=== PATIENT | male | born 1965 | race Two or more races ===

== ENCOUNTER 2018-03-29 16:27 | Inpatient (IN) | payer MEDICARE, MEDICAID ==
[~2018-03-29] VITALS: Ht 175.3 cm; Wt 108.9 kg
--- NOTE | 2018-03-29 16:30 | NUR ---
PATIENT C/O "IM HAVING ANXIETY SINCE LAST NIGHT AND MY XANAX IS NOT WORKING." A/OX3. VSS. WAITING FOR MD MELGAR
[2018-03-29 17:05] LABS: BASOPHILS % (AUTO) 0.4 % (0.0-2.0); HEMATOCRIT 40 % (39-51); HEMOGLOBIN 12.8 g/dL (13.5-17.5); LYMPHOCYTES # (AUTO) 2.2 /CMM (0.8-4.8); MEAN CORPUSCULAR HEMOGLOBIN 27 PG (26.0-33.0); MEAN CORPUSCULAR HGB CONC 32 g/dl (31.0-36.0); MEAN CORPUSCULAR VOLUME 84 fL (80-96); MONOCYTES # (AUTO) 0.6 /CMM (0.1-1.30); MONOCYTES % (AUTO) 8.3 % (2.0-12.0); NEUTROPHILS # (AUTO) 4.1 /CMM (1.8-8.9); NEUTROPHILS % (AUTO) 59.3 % (43.0-81.0); PLATELET COUNT (AUTO) 360 /CMM (150-450); RDW COEFFICIENT OF VARIATION 13.4 (11.5-15.0); RED BLOOD CELL COUNT(AUTO) 4.77 MIL/uL (4.5-6.0)
[2018-03-29 17:29] LABS: CALCIUM, SERUM 8.9 mg/dL (8.5-10.1); CARBON DIOXIDE 28 mmol/L (21-32); CHLORIDE 99 mmol/L (98-107); CREATININE 1.2 mg/dL (0.6-1.3); GLUCOSE 168 mg/dL (74-106); POTASSIUM 4.2 mmol/L (3.5-5.1); SODIUM SERUM 134 mmol/L (136-145); UREA NITROGEN, BLOOD 25 mg/dL (7-18)
[2018-03-29 17:35] LABS: ALANINE AMINOTRANSFERASE 29 U/L (12-78); ALBUMIN 3.6 g/dL (3.4-5.0); ALKALINE PHOSPHATASE 62 U/L (46-116); ASPARTATE AMINOTRANSFERASE 15 U/L (15-37); BILIRUBIN,DIRECT 0.1 mg/dL (0.0-0.2); BILIRUBIN,TOTAL 0.3 mg/dL (0.2-1.0); TOTAL PROTEIN, SERUM 7.6 g/dL (6.4-8.2)
[2018-03-29 17:38] LABS: ACETAMINOPHEN < 2 ug/ml (10-30); ALCOHOL, BLOOD < 3 mg/dL (0-0); SALICYLATE 2.7 mg/dL (2.8-20.0)
--- NOTE | 2018-03-29 19:20 | NUR ---
patient in stable condition. endorsed to SEAMUS Momin.
[2018-03-29 19:52] LABS: APPEARANCE,URINE CLEAR (CLEAR); BILIRUBIN,URINE NEGATIVE (NEGATIVE); BLOOD, URINE NEGATIVE Ery/uL (NEGATIVE); COLOR,URINE YELLOW (YELLOW); KETONES,URINE NEGATIVE (NEGATIVE); LEUKOCYTE ESTERASE ,URINE NEGATIVE (NEGATIVE); NITRITE, URINE NEGATIVE (NEGATIVE); PH,URINE 5.5 (5.0-8.0); PROTEIN,URINE NEGATIVE (NEGATIVE); UGLUCOSE TRACE mg/dL (NEGATIVE); UROBILINOGEN,URINE 0.2 EU/dL (0.2)
[2018-03-29 20:02] LABS: BACTERIA,URINE None seen /HPF (None Seen); RBC,URINE 0-2 /HPF (0-2); SQUAMOUS EPITHELIAL CELL,UR 0-2 /HPF (None Seen); WBC,URINE 0-2 /HPF (0-3)
--- NOTE | 2018-03-29 20:16 | NUR ---
BED 216-2 GPS
--- NOTE | 2018-03-29 20:36 | NUR ---
PT CALM & COOPERATIVE, NAD NOTED @ THIS TIME, WILL BE TRANSPORTED TO PSYCH UNIT.
[2018-03-29 21:00] VITALS: BP 125/76
[2018-03-29 21:15] VITALS: BP 125/76
[2018-03-29] MEDS ORDERED: MAGNESIUM HYDROXIDE 30 ML UDC PO PRN (21:30)
[2018-03-29] MEDS ORDERED: MAG HYDROX/AL HYDROX/SIMETH 30 ML UDC PO PRN (21:30)
[2018-03-29] MEDS ORDERED: LORAZEPAM 0.5 MG TABLET PO PRN (21:30)
[2018-03-29] MEDS ORDERED: ACETAMINOPHEN 325 MG TABLET PO PRN (21:30)
[2018-03-29] MEDS ORDERED: TEMAZEPAM 7.5 MG CAPSULE PO PRN (21:30)
--- NOTE | 2018-03-29 21:30 | NUR ---
ADMITTED 53 Y/O HOMELESS MALE EVALUATED AT [facility]. ON 5150 HOLD, BASED ON HOLD, PATIENT PRESENTED HIMSELF TO ER STATING DEPRESSED WITH SUICIDAL IDEATION WITH PLAN TO RUN INTO TRAFFIC. PATIENT ADMITTING DX. DEPRESSED MOOD AND MEDICAL DX. OF HYPERTENSION, TYPE 2 DM. UPON FACE TO FACE EVALUATION, PATIENT APPEARED ALERT, ORIENTED X 4, COOPERATIVE, HYPERVERBAL BUT REDIRECTIBLE, ADMITS TO SUICIDAL IDEATION BUT DENIES PLAN AND CONTRACTS FOR SAFETY AT THIS TIME, NO SOB, NO ACUTE DISTRESS, BREATHING EVEN AND UNLABORED, DENIES PAIN AND DISCOMFORT. HEAD TO TOE ASSESSMENT DONE, AMBULATORY, CONTINENT,SKIN INTACT, PICTURES TAKEN, PATIENT SIGNED PAPERWORK. ALL CONTRABANDS AND BELONGINGS INSPECTED BY THE DROP HAMMER MECHANIC, MEDICATIONS LOGGED AND IN BAG TO BE SENT TO PHARMACY. NOTIFIED DR. HAJI OF THE ADMISSION. DR. GRAVES NOTIFIED OF ADMISSION AND WILL SEE PATIENT TONIGHT. SNACK PROVIDED,KEPT CLEAN, DRY AND COMFORTABLE, WILL CONTINUE TO MONITOR [id number] FOR SAFETY.
[2018-03-29] MEDS ORDERED: IBUP-1957 PO (21:38)
[2018-03-29] MEDS ORDERED: METF10004 PO (21:38)
[2018-03-29] MEDS ORDERED: LISI30TA4 PO (21:38)
[2018-03-30] MEDS ORDERED: IBUPROFEN 800 MG TABLET PO SCH (00:30)
[2018-03-30] MEDS: METFORMIN 500 MG TABLET PO SCH ×2 (08:56→17:29)
[2018-03-30] MEDS: LISINOPRIL (10MG) 10 MG TABLET PO SCH (08:57)
[2018-03-30 09:02] VITALS: BP 122/78
[2018-03-30] MEDS: IBUPROFEN 400 MG TABLET PO PRN (09:02)
--- NOTE | 2018-03-30 09:02 | NUR ---
[id number]: GAVE MOTRIN 800 MG PO DUE TO GENERALIZED PAIN 6/10 PAIN UPON PT REQUEST AND WILL CONTINUE TO MONITOR FOR EFFECTIVENESS OF MEDICATION.
[2018-03-30 16:00] VITALS: BP 142/98
[2018-03-30] MEDS: ARIPIPRAZOLE 5 MG TABLET PO SCH (17:29)
[2018-03-30 20:00] VITALS: BP 117/72
[2018-03-30 21:04] VITALS: BP 117/72
[2018-03-30] MEDS ORDERED: LORAZEPAM 0.5 MG TABLET PO PRN (21:30)
[2018-03-31 07:07] LABS: BASOPHILS % (AUTO) 0.4 % (0.0-2.0); EOSINOPHILS % (AUTO) 1.2 % (0.0-6.0); HEMATOCRIT 41 % (39-51); HEMOGLOBIN 13.2 g/dL (13.5-17.5); LYMPHOCYTES # (AUTO) 2.6 /CMM (0.8-4.8); LYMPHOCYTES % (AUTO) 37.3 % (20.0-44.0); MEAN CORPUSCULAR HEMOGLOBIN 28 PG (26.0-33.0); MEAN CORPUSCULAR HGB CONC 33 g/dl (31.0-36.0); MEAN CORPUSCULAR VOLUME 87 fL (80-96); MONOCYTES # (AUTO) 0.5 /CMM (0.1-1.30); MONOCYTES % (AUTO) 7.7 % (2.0-12.0); NEUTROPHILS # (AUTO) 3.7 /CMM (1.8-8.9); NEUTROPHILS % (AUTO) 53.4 % (43.0-81.0); PLATELET COUNT (AUTO) 310 /CMM (150-450); RDW COEFFICIENT OF VARIATION 14.1 (11.5-15.0); RED BLOOD CELL COUNT(AUTO) 4.68 MIL/uL (4.5-6.0)
[2018-03-31 07:24] LABS: CHOLESTEROL 193 mg/dL (<200); HDL CHOLESTEROL 38 mg/dL (40-60); LDL 131 mg/dL (0-99); TRIGLYCERIDES 142 mg/dL (30-150)
[2018-03-31 07:25] LABS: ALBUMIN 3.3 g/dL (3.4-5.0); BILIRUBIN,TOTAL 0.4 mg/dL (0.2-1.0); CALCIUM, SERUM 8.8 mg/dL (8.5-10.1); TOTAL PROTEIN, SERUM 7.2 g/dL (6.4-8.2)
[2018-03-31 08:00] VITALS: BP 119/77
[2018-03-31] MEDS: ARIPIPRAZOLE 5 MG TABLET PO SCH (08:53)
[2018-03-31] MEDS: METFORMIN 500 MG TABLET PO SCH ×2 (08:53→17:34)
[2018-03-31] MEDS: LISINOPRIL (10MG) 10 MG TABLET PO SCH (08:53)
[2018-03-31] MEDS: IBUPROFEN 400 MG TABLET PO PRN (08:54)
--- NOTE | 2018-03-31 08:54 | NUR ---
[id number]: GAVE MOTRIN 800 MG PO DUE TO GENERALIZED PAIN 6/10 PAIN UPON PT REQUEST AND WILL CONTINUE TO MONITOR FOR EFFECTIVENESS OF MEDICATION.
[2018-03-31] MEDS ORDERED: ARIPIPRAZOLE 5 MG TABLET PO SCH (09:00)
[2018-03-31 16:00] VITALS: BP 108/52
--- NOTE | 2018-03-31 16:05 | NUR ---
INITIAL DISCHARGE PLAN: Patient wishes to be discharged [facility] a [facility] [place] [facility] in the [facility]. SW will help form a safe and proper discharge in collaboration with .
--- NOTE | 2018-03-31 19:00 | NUR ---
DISCHARGE NOTE: PT WAS DISCHARGED AT 1900 [facility]IA [facility] TO [facility]: [facility] - [address] [place] [address] - .
--- NOTE | 2018-03-31 22:52 | NUR ---
patient discharge [facility] accompanied by ambulance staff, denies any pain or discomfort at this time vital sign stable, no distress noted, patient was alert, oriented x 4 all needs met.
== END 2018-03-31 21:31 | disposition short-term general hospital (02) | DRG 885 ==
LOC: ER 16:30 → GPS 20:25
PROVIDERS: ADMIT Psychiatry & Neurology Psychosomatic Medicine; ATTEND Internal Medicine
DX: F25.0 Schizoaffective disorder, bipolar type (principal); F23 Brief psychotic disorder; R45.851 Suicidal ideations; E11.9 Type 2 diabetes mellitus without complications; I10 Essential (primary) hypertension; F41.9 Anxiety disorder, unspecified; Z73.6 Limitation of activities due to disability; E66.01 Morbid (severe) obesity due to excess calories; F32.9 Major depressive disorder, single episode, unspecified; Z68.35 Body mass index [BMI] 35.0-35.9, adult; F19.90 Other psychoactive substance use, unspecified, uncomplicated; Z59.0 Homelessness; Z79.899 Other long term (current) drug therapy; Z79.84 Long term (current) use of oral hypoglycemic drugs
CPT/HCPCS: 36415; 80048-TC; 80053-TC; 80061-TC; 80076-TC; 80305; 81000-TC; 85025-TC; 87081-TC; A4606; G0480; Z7610

== ENCOUNTER 2018-08-03 11:39 | Emergency (ER) | payer MEDICARE, OTHER ==
[~2018-08-03] VITALS: Ht 172.7 cm; Wt 108.4 kg
[~2018-08-03 11:39] MED LIST: IBUP-1957 PO; LISI30TA4 PO; METF-442 PO
--- NOTE | 2018-08-03 11:41 | NUR ---
PT BIB SELF C/ SUICIDAL IDEATION, PT IS AAOX4, NOT IN RESPIRATORY DISTRESS, V/S STABLE, KEPT RESTED AND COMFORTABLE.
--- NOTE | 2018-08-03 11:45 | NUR ---
URINE SAMPLE COLLECTED AND SENT TO LAB.
[2018-08-03 12:11] LABS: APPEARANCE,URINE Clear (CLEAR); BILIRUBIN,URINE Negative (NEGATIVE); BLOOD, URINE Negative Ery/uL (NEGATIVE); COLOR,URINE Yellow (YELLOW); KETONES,URINE Negative (NEGATIVE); LEUKOCYTE ESTERASE ,URINE Negative (NEGATIVE); NITRITE, URINE Negative (NEGATIVE); PH,URINE 5.5 (5.0-8.0); PROTEIN,URINE Negative (NEGATIVE); UGLUCOSE 500 MG/DL mg/dL (NEGATIVE); UROBILINOGEN,URINE 0.2 EU/dL (0.2)
--- NOTE | 2018-08-03 12:14 | NUR ---
PHLEB AT BEDSIDE, LABS DRAWNED.
[2018-08-03 12:20] LABS: BASOPHILS # (AUTO) 0.1 /CMM (0.0-0.2); BASOPHILS % (AUTO) 0.8 % (0.0-2.0); EOSINOPHILS % (AUTO) 1.2 % (0.0-6.0); HEMATOCRIT 44 % (39-51); HEMOGLOBIN 14.5 g/dL (13.5-17.5); LYMPHOCYTES # (AUTO) 1.9 /CMM (0.8-4.8); LYMPHOCYTES % (AUTO) 27.2 % (20.0-44.0); MEAN CORPUSCULAR HGB CONC 33 g/dl (31.0-36.0); MEAN CORPUSCULAR VOLUME 85 fL (80-96); MONOCYTES # (AUTO) 0.7 /CMM (0.1-1.30); MONOCYTES % (AUTO) 9.3 % (2.0-12.0); NEUTROPHILS # (AUTO) 4.4 /CMM (1.8-8.9); NEUTROPHILS % (AUTO) 61.5 % (43.0-81.0); PLATELET COUNT (AUTO) 258 /CMM (150-450); RED BLOOD CELL COUNT(AUTO) 5.18 MIL/uL (4.5-6.0); WHITE BLOOD COUNT (AUTO) 7.1 K/uL (4.3-11.0)
[2018-08-03 12:44] LABS: ACETAMINOPHEN < 2 ug/ml (10-30); ALANINE AMINOTRANSFERASE 27 U/L (12-78); ALBUMIN 3.4 g/dL (3.4-5.0); ALCOHOL, BLOOD < 3 mg/dL (0-0); ALKALINE PHOSPHATASE 77 U/L (46-116); ASPARTATE AMINOTRANSFERASE 29 U/L (15-37); BILIRUBIN,TOTAL 0.5 mg/dL (0.2-1.0); CALCIUM, SERUM 8.5 mg/dL (8.5-10.1); CARBON DIOXIDE 30 mmol/L (21-32); CHLORIDE 91 mmol/L (98-107); CREATININE 1.4 mg/dL (0.6-1.3); POTASSIUM 4.7 mmol/L (3.5-5.1); SALICYLATE 2.3 mg/dL (2.8-20.0); SODIUM SERUM 132 mmol/L (136-145); TOTAL PROTEIN, SERUM 7.3 g/dL (6.4-8.2); UREA NITROGEN, BLOOD 30 mg/dL (7-18)
[2018-08-03 12:45] LABS: GLUCOSE 398 mg/dL (74-106)
[2018-08-03] MEDS ORDERED: INSULIN REGULAR, HUMAN 100 UNIT/ML 10 ML VIAL ONE (12:57)
[2018-08-03] MEDS ORDERED: ACETAMINOPHEN ES 500 MG TABLET ONE (12:57)
[2018-08-03] MEDS ORDERED: INSULIN REGULAR, HUMAN 100 UNIT/ML 10 ML VIAL SQ ONE (13:00)
[2018-08-03] MEDS ORDERED: ACETAMINOPHEN 325 MG TABLET PO ONE (13:00)
[2018-08-03] MEDS ORDERED: IV NS 0.9% 1,000 ML BAG IV ONE ×2 (13:00→15:00)
[2018-08-03] MEDS: CLOTRIMAZOLE 1% 15 GM TUBE TP SCH ×2 (13:20→17:19)
[2018-08-03] MEDS ORDERED: LISI-603 PO (13:24)
[2018-08-03] MEDS ORDERED: ALPR1TAB2 PO (13:24)
[2018-08-03] MEDS ORDERED: ARIP30TA3 PO (13:24)
--- NOTE | 2018-08-03 14:42 | NUR ---
BLOOD GLUCOSE RECHECKED 345MG/DL, REFERRED TO [facility].
--- NOTE | 2018-08-03 16:18 | NUR ---
RECHECKED BLOOD GLUCOSE LEVEL 240MG/DL. REFERRED TO [facility]
[2018-08-03] MEDS ORDERED: IV NS 0.9% 500 ML BAG IV ONE (16:30)
--- NOTE | 2018-08-03 17:20 | NUR ---
BLOOD GLUCOSE RECHECKED 211 MG/DL REFERRED TO [facility]. REPORT GIVEN TO [facility] FOR [facility].
--- NOTE | 2018-08-03 17:24 | NUR ---
ENDORSED TO [facility] FOR [facility].
--- NOTE | 2018-08-03 17:44 | NUR ---
[facility] TRANSPORT TO [facility] ETA [id number] TRIP# [id number]
[2018-08-03 19:16] VITALS: BP 128/69
== END 2018-08-03 19:18 ==
LOC: ER 11:48
DX: R45.851 Suicidal ideations (principal); E11.65 Type 2 diabetes mellitus with hyperglycemia; N28.9 Disorder of kidney and ureter, unspecified; I10 Essential (primary) hypertension; G89.29 Other chronic pain; M54.9 Dorsalgia, unspecified; F31.9 Bipolar disorder, unspecified; F12.10 Cannabis abuse, uncomplicated; F14.10 Cocaine abuse, uncomplicated; Z59.0 Homelessness; Z91.19 Patient's noncompliance with other medical treatment and regimen; Z04.6 Encounter for general psychiatric examination, requested by authority
CPT/HCPCS: 36415; 80048; 80076; 80305; 80329; 81001; 82962 ×3; 85025; 96360; 96361; 96372; 99285; A4606; G0480 ×2; J1815; J7030; J7040; 81000-TC; Z7610

== ENCOUNTER 2018-09-19 21:32 | Emergency (ER) | payer MEDICARE, OTHER ==
[~2018-09-19] VITALS: Ht 175.3 cm; Wt 108.9 kg
[~2018-09-19 21:32] MED LIST changes: +ALPR1TAB2 PO; +ARIP30TA3 PO; +LISI-603 PO; -LISI30TA4 PO
--- NOTE | 2018-09-19 22:02 | NUR ---
JACE C/O +SI/-HI WITH PLAN TO "RUN INTO TRAFFIC". PATIENT STATES HE IS "OFF MY MEDS" X 1 MONTH AND IS "HEARING VOICES". PT AOX3 RR EVEN AND UNLABORED. NO SOB NOTED. NAD NOTED. NO NVD AT THIS TIME. PT WAITING FOR MD MELGAR.
--- NOTE | 2018-09-19 22:03 | NUR ---
SAFETY PRECAUTION PLACED.
--- NOTE | 2018-09-19 22:06 | NUR ---
DR. GARCIA AT BEDSIDE FOR EVAL.
--- NOTE | 2018-09-19 22:19 | NUR ---
LAB AT BEDSIDE FOR BLOOD DRAW.
[2018-09-19 22:24] LABS: BASOPHILS % (AUTO) 0.5 % (0.0-2.0); EOSINOPHILS % (AUTO) 1.5 % (0.0-6.0); HEMATOCRIT 40 % (39-51); HEMOGLOBIN 12.9 g/dL (13.5-17.5); LYMPHOCYTES # (AUTO) 2.3 /CMM (0.8-4.8); MEAN CORPUSCULAR HGB CONC 33 g/dl (31.0-36.0); MEAN CORPUSCULAR VOLUME 86 fL (80-96); MONOCYTES # (AUTO) 0.7 /CMM (0.1-1.30); MONOCYTES % (AUTO) 10.3 % (2.0-12.0); NEUTROPHILS # (AUTO) 3.3 /CMM (1.8-8.9); NEUTROPHILS % (AUTO) 51.7 % (43.0-81.0); PLATELET COUNT (AUTO) 228 /CMM (150-450); WHITE BLOOD COUNT (AUTO) 6.5 K/uL (4.3-11.0)
[2018-09-19 22:33] LABS: CALCIUM, SERUM 8.2 mg/dL (8.5-10.1); CARBON DIOXIDE 26 mmol/L (21-32); CHLORIDE 100 mmol/L (98-107); CREATININE 0.9 mg/dL (0.6-1.3); GLUCOSE 235 mg/dL (74-106); POTASSIUM 3.7 mmol/L (3.5-5.1); SODIUM SERUM 136 mmol/L (136-145); UREA NITROGEN, BLOOD 12 mg/dL (7-18)
[2018-09-19 22:38] LABS: ALANINE AMINOTRANSFERASE 30 U/L (12-78); ALBUMIN 3.1 g/dL (3.4-5.0); ALCOHOL, BLOOD < 3 mg/dL (0-0); ALKALINE PHOSPHATASE 62 U/L (46-116); ASPARTATE AMINOTRANSFERASE 9 U/L (15-37); BILIRUBIN,TOTAL 0.2 mg/dL (0.2-1.0); SALICYLATE 2.6 mg/dL (2.8-20.0); TOTAL PROTEIN, SERUM 6.4 g/dL (6.4-8.2)
[2018-09-19 22:39] LABS: ACETAMINOPHEN 0 ug/ml (10-30)
[2018-09-19] MEDS ORDERED: INSULIN REGULAR, HUMAN 100 UNIT/ML 10 ML VIAL SQ ONE (23:00)
[2018-09-19] MEDS ORDERED: METFORMIN XR 500 MG TAB.SR.24H PO SCH (23:00)
--- NOTE | 2018-09-19 23:05 | NUR ---
REPORT GIVEN TO SEAMUS PLATT FOR CONTINUITY OF CARE. PT COMFORTABLE AT THIS TIME.
[2018-09-19] MEDS ORDERED: METFORMIN XR 500 MG TAB.SR.24H PO ONE (23:06)
[2018-09-19] MEDS ORDERED: INSULIN REGULAR, HUMAN 100 UNIT/ML 10 ML VIAL ONE (23:08)
--- NOTE | 2018-09-19 23:17 | NUR ---
FSBS 241 COVERED WITH REGULAR INSULIN 10 UNITS SQ PER ORDER.VERIFIED WITH ITS OK TO GIVE GLUCOPHAGE XR 1000 MG PO.
--- NOTE | 2018-09-20 | NUR ---
REINSTRUCTED PATIENT TO URINATE SO SPECIMEN CAN BE COLLECTED.PATIENT VERBALIZED NO URGE TO VOID THIS TIME.ABLE TO DINK WATER.
--- NOTE | 2018-09-20 00:16 | NUR ---
PATIENT VOIDED AND SPECIMEN COLLECTED SENT TO LAB.FSBS 187 NOTIFED. PATIENT VERBALIZED HE IS HUNGRY. PER OK TO HAVE SANDWICH.
[2018-09-20 00:22] LABS: APPEARANCE,URINE CLEAR (CLEAR); BILIRUBIN,URINE NEGATIVE (NEGATIVE); BLOOD, URINE NEGATIVE Ery/uL (NEGATIVE); COLOR,URINE YELLOW (YELLOW); KETONES,URINE TRACE (NEGATIVE); LEUKOCYTE ESTERASE ,URINE NEGATIVE (NEGATIVE); NITRITE, URINE NEGATIVE (NEGATIVE); PROTEIN,URINE NEGATIVE (NEGATIVE); UGLUCOSE 3+ mg/dL (NEGATIVE); UROBILINOGEN,URINE 0.2 EU/dL (0.2)
[2018-09-20 00:36] LABS: BACTERIA,URINE None seen /HPF (None Seen); RBC,URINE NONE SEEN /HPF (0-2); SQUAMOUS EPITHELIAL CELL,UR Few /HPF (None Seen); WBC,URINE 0-2 /HPF (0-3)
--- NOTE | 2018-09-20 01:48 | NUR ---
FSBS 169.PATIENT VERBALIZED WANTS ANOTHER SANDWICH.WILL PROVIDE.
--- NOTE | 2018-09-20 02:17 | NUR ---
PER [facility] INTAKE ADMIT TO [facility] REYES. ADMITTING MD DR. MONCADA. NURSE REPORT [phone] EX [phone]
--- NOTE | 2018-09-20 02:22 | NUR ---
[facility]. ETA: 4:30AM TRIP #[id number]
--- NOTE | 2018-09-20 02:34 | NUR ---
PATIENT AWAITING TRANSPORT FOR [facility].ACCEPTING MD CORTES.REPORT GIVEN TO Hasmukh REED,RN FOR CONTINUITY OF CARE.PATIENT RESTING IN NO ACUTE DISTRESS.
[2018-09-20 03:31] VITALS: BP 122/77
--- NOTE | 2018-09-20 03:32 | NUR ---
REPORT GIVEN TO EMT FROM AMBUL 234. PT AWARE OF TRANSPORT. WITH ALL PERSONAL BELONGINGS. VSS. TRANSFER DOCUMENTATION WITH EMT. PER [facility] TOOK OVER CARE. PT TRANSFERRED TO [facility].
== END 2018-09-20 03:35 ==
LOC: ER 21:33
DX: R45.851 Suicidal ideations (principal); F14.10 Cocaine abuse, uncomplicated; E11.65 Type 2 diabetes mellitus with hyperglycemia; F31.9 Bipolar disorder, unspecified; I10 Essential (primary) hypertension; G89.29 Other chronic pain; M54.9 Dorsalgia, unspecified; F17.200 Nicotine dependence, unspecified, uncomplicated; Z91.19 Patient's noncompliance with other medical treatment and regimen; Z59.0 Homelessness
CPT/HCPCS: 36415; 80048-TC; 80076-TC; 80305; 81000-TC; 82962-TC; 85025-TC; G0480; J1815

== ENCOUNTER 2019-01-29 14:30 | Emergency (ER) | payer MEDICARE, OTHER ==
[~2019-01-29] VITALS: Ht 175.3 cm; Wt 108.9 kg
--- NOTE | 2019-01-29 14:58 | NUR ---
PT C/O SUICIDAL IDEATION "I WANT TO RUN THRU TRAFFIC", PT IS AAOX4, NOT IN RESPIRATORY DISTRESS, V/S STABLE, KEPT RESTED AND COMFORTABLE, WILL CONTINUE TO MONITOR.
--- NOTE | 2019-01-29 15:02 | NUR ---
URINE SPECIMEN COLLECTED AND SENT TO LAB.
[2019-01-29 15:23] LABS: APPEARANCE,URINE CLEAR (CLEAR); BILIRUBIN,URINE NEGATIVE (NEGATIVE); BLOOD, URINE NEGATIVE Ery/uL (NEGATIVE); COLOR,URINE YELLOW (YELLOW); KETONES,URINE NEGATIVE (NEGATIVE); LEUKOCYTE ESTERASE ,URINE NEGATIVE (NEGATIVE); NITRITE, URINE NEGATIVE (NEGATIVE); PH,URINE 5.5 (5.0-8.0); PROTEIN,URINE NEGATIVE (NEGATIVE); UGLUCOSE 1+ mg/dL (NEGATIVE); UROBILINOGEN,URINE 0.2 EU/dL (0.2)
[2019-01-29 15:38] LABS: BACTERIA,URINE None seen /HPF (None Seen); RBC,URINE NONE SEEN /HPF (0-2); WBC,URINE 0-2 /HPF (0-3)
[2019-01-29 15:39] LABS: SQUAMOUS EPITHELIAL CELL,UR Rare /HPF (None Seen)
[2019-01-29 15:48] LABS: BASOPHILS % (AUTO) 0.5 % (0.0-2.0); EOSINOPHILS % (AUTO) 0.6 % (0.0-6.0); HEMATOCRIT 45 % (39-51); LYMPHOCYTES % (AUTO) 27.9 % (20.0-44.0); MEAN CORPUSCULAR HGB CONC 33 g/dl (31.0-36.0); MEAN CORPUSCULAR VOLUME 88 fL (80-96); MONOCYTES # (AUTO) 0.6 /CMM (0.1-1.30); NEUTROPHILS # (AUTO) 4.5 /CMM (1.8-8.9); PLATELET COUNT (AUTO) 236 /CMM (150-450); RED BLOOD CELL COUNT(AUTO) 5.16 MIL/uL (4.5-6.0); WHITE BLOOD COUNT (AUTO) 7.1 K/uL (4.3-11.0)
[2019-01-29 15:58] LABS: CALCIUM, SERUM 8.8 mg/dL (8.5-10.1); CARBON DIOXIDE 21 mmol/L (21-32); CHLORIDE 101 mmol/L (98-107); CREATININE 1.1 mg/dL (0.6-1.3); GLUCOSE 245 mg/dL (74-106); SODIUM SERUM 136 mmol/L (136-145); UREA NITROGEN, BLOOD 18 mg/dL (7-18)
[2019-01-29 16:00] LABS: ALANINE AMINOTRANSFERASE 38 U/L (12-78); ALBUMIN 3.2 g/dL (3.4-5.0); ALCOHOL, BLOOD < 3 mg/dL (0-0); ALKALINE PHOSPHATASE 56 U/L (46-116); ASPARTATE AMINOTRANSFERASE 17 U/L (15-37); BILIRUBIN,TOTAL 0.3 mg/dL (0.2-1.0)
[2019-01-29 16:03] LABS: SALICYLATE 2.7 mg/dL (2.8-20.0)
[2019-01-29 16:04] LABS: ACETAMINOPHEN 0 ug/ml (10-30)
--- NOTE | 2019-01-29 17:05 | NUR ---
[facility] CRIS[facility] AT BEDSIDE FOR EVAL.
--- NOTE | 2019-01-29 19:24 | NUR ---
AWAITING CALL FOR [facility] FOR BED AVAILABILITY.
--- NOTE | 2019-01-29 21:48 | NUR ---
PT ACCEPTED TO [facility] BY DR MONTES. # FOR REPORT [phone].
--- NOTE | 2019-01-29 21:53 | NUR ---
[facility] CALLED FOR TRANSPORT. ETA [id number]. TRIP# [id number]
--- NOTE | 2019-01-29 23:01 | NUR ---
[facility] AT BEDSIDE FOR TRANSPORT TO [facility]
[2019-01-29 23:06] VITALS: BP 129/75
--- NOTE | 2019-01-29 23:07 | NUR ---
REPORT GIVEN TO IJ AT [facility]
--- NOTE | 2019-01-29 23:10 | NUR ---
PT WAS PICKED UP BY [facility] IN STABLE CONDITION. TRANSFERRED TO [facility]
== END 2019-01-29 23:33 ==
LOC: ER 14:32
DX: R45.851 Suicidal ideations (principal); F31.9 Bipolar disorder, unspecified; E11.65 Type 2 diabetes mellitus with hyperglycemia; F41.9 Anxiety disorder, unspecified; F17.200 Nicotine dependence, unspecified, uncomplicated; I10 Essential (primary) hypertension; G89.29 Other chronic pain; M54.9 Dorsalgia, unspecified; Z59.0 Homelessness
CPT/HCPCS: 36415; 80048; 80076; 80305; 80307; 80329; 81001; 85025; 93005; 99285; G0480; 81000-TC